=== PATIENT | female | born 1940 | race Caucasian/White ===

== ENCOUNTER 2016-05-18 18:10 | Observation (INO) | payer OTHER ==
[~2016-05-18] VITALS: Ht 167.6 cm; Wt 67.6 kg
[~2016-05-18 18:10] MED LIST: BUME1TAB PO; DICL75 PO; LEVO.1 PO; OMEP20TA39 PO; PAXI20TA26 PO; PERC5TAB12 PO; POTA20IN3 PO; PREG75 PO; PREM0.45 PO; SUCR1TAB PO
[2016-05-18 18:28] VITALS: BP 137/80; PULSE 82; RESP 18; TEMP 98.2; O2SAT 98
[2016-05-18] MEDS ORDERED: MECLIZINE HCL 25 MG TAB PO ONE (18:30)
[2016-05-18] MEDS ORDERED: ONDANSETRON HCL 4 MG/2 ML VIAL IV PUSH ONE (18:30)
[2016-05-18] MEDS ORDERED: BUME1TAB PO (18:37)
[2016-05-18] MEDS ORDERED: LYRI100C PO (18:37)
[2016-05-18] MEDS ORDERED: PARO20TA2 PO (18:37)
[2016-05-18] MEDS ORDERED: ESTR2TAB PO (18:37)
[2016-05-18] MEDS ORDERED: POTA-163 PO (18:37)
[2016-05-18] MEDS ORDERED: SUCR1TAB PO (18:37)
[2016-05-18] MEDS ORDERED: LEVO88TA2 PO (18:37)
[2016-05-18] MEDS ORDERED: OMEP40CA2 PO (18:37)
[2016-05-18] MEDS ORDERED: DICL50TA PO (18:37)
[2016-05-18] MEDS: SODIUM CHLOR 0.9% 1000 ML INJ 1,000 ML IV SCH ×3 (18:41→23:32)
--- NOTE | 2016-05-18 18:41 | PD ---
HPI Chief Complaint: Dizziness Time Seen by Provider: 18:27 Travel History International Travel<30 days: No Contact w/Intl Traveler<30days: No Traveled to known affect area: No History of Present Illness HPI 75 years old female complains of left hip pain, dizziness, nausea vomiting. Patient states that she fell 5 days ago on the left hip and has persistent left hip pain since then. Patient states the pain is sharp pain localized to left hip. Patient denies any pain radiation. Patient started having dizziness with nausea vomiting since last night. Patient denies any headache. Patient denies any neck pain. Patient denies any chest pain or shortness of breath. Patient denies abdominal pain. Patient has indigestion feeling for the past several days. Patient denies any dysuria or frequency. Patient denies any focal weakness or numbness of extremity. Patient states that the dizziness is worse when her eyes open and better when her eyes closed. Patient denies any recent head injury. PFSH Past Medical History Arthritis: Yes (RA) Asthma: Yes Anxiety: No Depression: No Heart Rhythm Problems: No Cancer: No Cardiovascular Problems: No High Cholesterol: No Chest Pain: No Congestive Heart Failure: No COPD: No Cerebrovascular Accident: No Diabetes: No Diminished Hearing: No Endocrine: Yes GERD: Yes Genitourinary: Yes (HX OF FREQUENT UTI) Hepatitis: No Hiatal Hernia: Yes Immune Disorder: Yes (RHEUMATOID ARTHRITIS) Kidney Stones: No Musculoskeletal: Yes (RHEUMATOID ARTHRITIS, LOWER BACK AND L KNEE PAIN) Neurologic: Yes (LEXIS NEUROPATHY LEXIS UPPER/LOWER EXTREMITIES, RHEUMATOID ARTHRITIS) Psychiatric: No Reproductive: No Respiratory: Yes (HX OF ASTHMA, CHRONIC COUGH) Migraines: No Renal Failure: No Seizures: No Sleep Apnea: No Thyroid Disease: Yes Ulcer: Yes ?: Not Dilation and Curettage (D&C): Yes (x5) Past Surgical History Abdominal Surgery: Yes (UMBILICAL HERNIA REPAIR ) AICD: No Arteriovenous Shunt: No Ear Surgery: No Endocrine Surgery: No Eye Surgery: No Genitourinary Surgery: Yes (BLADDER SLING 06/2012) Gynecologic Surgery: Yes (HYSTERECTOMY , D & C'S -- 8 OR 9) Hysterectomy: Yes Insulin Pump: No Joint Replacement: Yes (R KNEE REPLACEMENT) Oral Surgery: No Pacemaker: No Other Surgery: Yes (finger surgery, carpal tunnel, RIGHT KNEE REPLACEMENT) Social History Alcohol Use: No Tobacco Use: No Substance Use: No Allergies-Medications (Allergen,Severity, Reaction): Coded Allergies: Remicade (Unverified Allergy, Intermediate, 02/01/14) Reported Meds & Prescriptions Reported Meds & Active Scripts Active Percocet 5-325 mg (Oxycodone/Acetaminophen) Oxycodone 5/325 Acetaminophen Tab 1 Tab PO Q4H PRN Synthroid 100 mcg (Levothyroxine Sodium) 100 Mcg Tab 100 Mcg PO DAILY Reported Diclofenac Sodium 75 Mg Tab 75 Mg PO BID Hm Omeprazole (Omeprazole) 20 Mg Tab 40 Mg PO TIDAC Lyrica (Pregabalin) 75 Mg Cap 75 Mg PO TID Sucralfate 1 Gm Tab 1 Gm PO QID Potassium Chloride ER 20 meq 20 Meq Tab 20 Meq PO DAILY Bumetanide 1 Mg Tab (Bumetanide) 1 Mg Tab 1 Mg PO DAILY Paxil (Paroxetine HCl) 20 Mg Tab 20 Mg PO HS Premarin (Estrogens Conjugated) 0.45 Mg Tab 0.45 Mg PO DAILY Review of Systems General / Constitutional: No: Fever Eyes: No: Visual changes HENT: Positive: Lightheadedness, No: Headaches Cardiovascular: No: Chest Pain or Discomfort Respiratory: No: Shortness of Breath Gastrointestinal: Positive: Nausea, Vomiting, No: Abdominal Pain Genitourinary: No: Dysuria Musculoskeletal: No: Pain Skin: No Rash Neurologic: No: Weakness Psychiatric: No: Depression Endocrine: No: Polydipsia Hematologic/Lymphatic: No: Easy Bruising Physical Exam Narrative GENERAL: Well-nourished, well-developed patient. SKIN: Focused skin assessment warm/dry. HEAD: Normocephalic. EYES: No scleral icterus. No injection or drainage. Pupils 2 mm equal reactive. NECK: Supple, trachea midline. No JVD or lymphadenopathy. CARDIOVASCULAR: Regular rate and rhythm without murmurs, gallops, or rubs. RESPIRATORY: Breath sounds equal bilaterally. No accessory muscle use. GASTROINTESTINAL: Abdomen soft, non-tender, nondistended. MUSCULOSKELETAL: Patient has ecchymosis swelling tenderness left hip area. Full range of motion of the left hip. BACK: Nontender without obvious deformity. No CVA tenderness. Neurologic exam: Patient's awake and alert oriented 3. No obvious focal neurological deficit. Data Data Last Documented VS Vital Signs Date Time Temp Pulse Resp B/P Pulse Ox O2 Delivery O2 Flow Rate FiO2 05/18/16 18:28 98.2 82 18 137/80 98 Orders Complete Blood Count With Diff (05/18/16 18:27) Comprehensive Metabolic Panel (05/18/16 18:) Prothrombin Time / Inr (Pt) (05/18/16 18:27) Act Partial Throm Time (Ptt) (05/18/16 18:) Urinalysis - C+S If Indicated (05/18/16 18:) Iv Access Insert/Monitor (05/18/16:) Ecg Monitoring (05/18/16 18:) Oximetry (05/18/16 18:) Sodium Chlor 0.9% 1000 Ml Inj (Ns 1000 M (05/18/16 18:30) Ondansetron Inj (Zofran Inj) (05/18/16 18:30) Meclizine (Antivert) (05/18/16 18:30) MDM Medical Decision Making Medical Screen Exam Complete: Yes Emergency Medical Condition: Yes Differential Diagnosis Differential diagnosis including contusion, fracture, dislocation, vertigo, electrolyte imbalance, dehydration, TIA, CVA Narrative Course 75-year-old female with left hip injury, dizziness, nausea vomiting. Normal saline solution 1 25 cc an hour. Meclizine 25 mg by mouth. Zofran 4 mg IV. John Duggan MD May 18, 2016 18:41
[2016-05-18 18:42] LABS: AUTOMATED NEUTROPHIL # 5.6 TH/MM3 (1.8-7.7); BASOPHIL # 0.1 TH/MM3 (0-0.2); BASOPHIL % 0.6 % (0.0-2.0); EOSINOPHIL # 0.1 TH/MM3 (0-0.4); EOSINOPHIL % 0.8 % (0.0-4.0); HEMATOCRIT 34.3 % (35.0-46.0); HEMO FLAGS DIFF FINAL; LYMPH % 25.4 % (9.0-44.0); LYMPHOCYTE # 2.2 TH/MM3 (1.0-4.8); MEAN CELL VOLUME 85.2 FL (80.0-100.0); MEAN CORPUSCULAR HGB CONC 34.1 % (32.0-36.0); MONO % 7.4 % (0.0-8.0); NEUT % 65.8 % (16.0-70.0); PLATELET COUNT 330 TH/MM3 (150-450); RED BLOOD COUNT 4.03 MIL/MM3 (4.00-5.30); RED CELL DISTRIBUTION WIDTH 14.3 % (11.6-17.2); WHITE BLOOD COUNT 8.6 TH/MM3 (4.0-11.0)
[2016-05-18 18:43] VITALS: RESP 20; O2SAT 98
[2016-05-18 18:50] LABS: CHLORIDE 105 MEQ/L (98-107); POTASSIUM 3.4 MEQ/L (3.5-5.1); SODIUM (NA) 141 MEQ/L (136-145)
[2016-05-18 18:54] LABS: ANION GAP 10 MEQ/L (5-15); BICARBONATE 25.6 MEQ/L (21.0-32.0); BLOOD UREA NITROGEN 17 MG/DL (7-18)
[2016-05-18 18:56] LABS: INTERNATIONAL NORMALIZED RATIO 0.9 RATIO
[2016-05-18 18:57] LABS: ALT (GPT) 95 U/L (10-53); AST (GOT) 54 U/L (15-37); GLOMERULAR FILTRATION RATE 59 ML/MIN (>89)
[2016-05-18 18:59] LABS: TOTAL BILIRUBIN ADULT 1.3 MG/DL (0.2-1.0)
[2016-05-18 19:00] LABS: ALKALINE PHOSPHATASE 44 U/L (45-117)
[2016-05-18] MEDS ORDERED: ACETAMINOPHEN/HYDROcodone 325 MG/5 MG TAB PO ONE (19:15)
[2016-05-18 19:52] VITALS: BP 158/76; PULSE 80; O2SAT 95
--- NOTE | 2016-05-18 20:06 | RADHPO ---
EXAM DATE/TIME: 05/18/2016 19:41 [facility] COMPARISON: No previous studies available for comparison. INDICATIONS : Fall. Left hip pain. MEDICAL HISTORY : None. SURGICAL HISTORY : None. ENCOUNTER: Initial ACUITY: 1 day PAIN SCORE: 8/10 LOCATION: Left pelvis FINDINGS: There is moderate osteoarthritis at the left hip. No acute fracture or dislocation. Fixation apparatu s present overlying the lower lumbar spine with multiple laminectomies. CONCLUSION: 1. Moderate osteoarthritis left hip. No acute fracture or dislocation. Shubham Esposito MD on May 18, 2016 at 20:02 Board Certified Radiologist. This report was verified electronically.
[2016-05-18] MEDS ORDERED: LORazepam 2 MG/ML VIAL IV PUSH ONE (20:30)
[2016-05-18] MEDS ORDERED: PREGABALIN 100 MG CAP PO ONE (20:30)
--- NOTE | 2016-05-18 21:09 | RADHPO ---
EXAM DATE/TIME: 05/18/2016 20:42 [facility] COMPARISON: CT BRAIN W/O CONTRAST, March 11, 2013, 12:19. INDICATIONS : Dizziness with nausea and vomiting. RADIATION DOSE: 56.80 CTDIvol (mGy) MEDICAL HISTORY : Rheumatoid arthritis. SURGICAL HISTORY : None. ENCOUNTER: Initial ACUITY: 1 day PAIN SCALE: 0/10 LOCATION: cranial TECHNIQUE: Multiple contiguous axial images were obtained of the head. Using automated exposure control and adj ustment of the mA and/or kV according to patient size, radiation dose was kept as low as reasonably a chievable to obtain optimal diagnostic quality images. FINDINGS: CEREBRUM: The ventricles are normal for age. No evidence of midline shift, mass lesion, hemorrhage or acute in farction. No extra-axial fluid collections are seen. POSTERIOR FOSSA: The cerebellum and brainstem are intact. The 4th ventricle is midline. The cerebellopontine angle i s unremarkable. EXTRACRANIAL: The visualized portion of the orbits is intact. SKULL: The calvaria is intact. No evidence of skull fracture. CONCLUSION: 1. No acute findings. Remote lacunar infarct left basal ganglia. Shubham Esposito MD on May 18, 2016 at 21:06 Board Certified Radiologist. This report was verified electronically.
[2016-05-18 21:13] VITALS: BP 133/66; PULSE 81; O2SAT 95
[2016-05-18] MEDS ORDERED: ONDANSETRON HCL 4 MG/2 ML VIAL IVP PRN (21:45)
[2016-05-18] MEDS ORDERED: BISACODYL 10 MG SUPP RECTAL PRN (21:45)
[2016-05-18] MEDS ORDERED: ACETAMINOPHEN 325 MG TAB PO PRN (21:45)
[2016-05-18] MEDS ORDERED: SODIUM CHLORIDE 0.9% FLUSH 10 ML FLUSH IV FLUSH PRN (21:45)
[2016-05-18] MEDS ORDERED: MORPHINE SULFATE 4 MG/ML INJ IV PRN (21:45)
[2016-05-18] MEDS ORDERED: LORazepam 2 MG/ML VIAL IV PUSH PRN (21:45)
--- NOTE | 2016-05-18 21:53 | PD ---
Data Data Last Documented VS Vital Signs Date Time Temp Pulse Resp B/P Pulse Ox O2 Delivery O2 Flow Rate FiO2 05/18/16 21:13 81 133/66 95 Room Air 05/18/16 18:43 20 05/18/16 18:28 98.2 Orders Complete Blood Count With Diff (05/18/16 18:27) Comprehensive Metabolic Panel (05/18/16 18:27) Prothrombin Time / Inr (Pt) (05/18/16 18:27) Act Partial Throm Time (Ptt) (05/18/16 18:27) Urinalysis - C+S If Indicated (05/18/16 18:27) Iv Access Insert/Monitor (05/18/16 18:27) Ecg Monitoring (05/18/16 18:27) Oximetry (05/18/16 18:27) Sodium Chlor 0.9% 1000 Ml Inj (Ns 1000 M (05/18/16 18:30) Ondansetron Inj (Zofran Inj) (05/18/16 18:30) Meclizine (Antivert) (05/18/16 18:30) Hip, Uni(Ap&Lat) W Ap Pelvis (05/18/16 18:34) Acetamin-Hydrocod 325-5 Mg (Como 5-325 (05/18/16 19:15) Ct Brain W/O Iv Contrast(Rout) (05/18/16 ) Lorazepam Inj (Ativan Inj) (05/18/16 20:30) Pregabalin (Lyrica) (05/18/16 20:30) Admit Order (Ed Use Only) (05/18/16 21:37) Labs Laboratory Tests Test 05/18/16 16:35 White Blood Count 8.6 TH/MM3 Red Blood Count 4.03 MIL/MM3 Hemoglobin 11.7 GM/DL Hematocrit 34.3 % Mean Corpuscular Volume 85.2 FL Mean Corpuscular Hemoglobin 29.0 PG Mean Corpuscular Hemoglobin 34.1 % Concent Red Cell Distribution Width 14.3 % Platelet Count 330 TH/MM3 Mean Platelet Volume 8.2 FL Neutrophils (%) (Auto) 65.8 % Lymphocytes (%) (Auto) 25.4 % Monocytes (%) (Auto) 7.4 % Eosinophils (%) (Auto) 0.8 % Basophils (%) (Auto) 0.6 % Neutrophils # (Auto) 5.6 TH/MM3 Lymphocytes # (Auto) 2.2 TH/MM3 Monocytes # (Auto) 0.6 TH/MM3 Eosinophils # (Auto) 0.1 TH/MM3 Basophils # (Auto) 0.1 TH/MM3 CBC Comment DIFF FINAL Differential Comment Prothrombin Time 10.0 SEC Prothromb Time International 0.9 RATIO Ratio Activated Partial 24.0 SEC Thromboplast Time Sodium Level 141 MEQ/L Potassium Level 3.4 MEQ/L Chloride Level 105 MEQ/L Carbon Dioxide Level 25.6 MEQ/L Anion Gap 10 MEQ/L Blood Urea Nitrogen 17 MG/DL Creatinine 0.92 MG/DL Estimat Glomerular Filtration 59 ML/MIN Rate Random Glucose 106 MG/DL Calcium Level 8.9 MG/DL Total Bilirubin 1.3 MG/DL Aspartate Amino Transf 54 U/L (AST/SGOT) Alanine Aminotransferase 95 U/L (ALT/SGPT) Alkaline Phosphatase 44 U/L Total Protein 7.2 GM/DL Albumin 3.8 GM/DL [facility] Supervised Visit with ROSARIO: No Interpretation(s) Afebrile, no tachycardia No leukocytosis Mild transaminitis, no baseline labs for 3 years Differential Diagnosis Peripheral vertigo, posterior CVA, subdural hematoma, subarachnoid hemorrhage Narrative Course This is a 75 year old female who had a fall several days ago with subsequent constant worsening vertigo. On exam she is getting extremely uncomfortable and her symptoms are present at rest. She has horizontal nystagmus. I suspect her symptoms are peripheral however despite meclizine, Zofran, IV fluids and Ativan she continues to be very uncomfortable. CT was negative for intracranial hemorrhage. Labs were reassuring. She does have a mild transaminitis but she' s not complaining of any abdominal pain at this time. We don't have any baseline labs for several years. Patient will be admitted for symptomatic control and possible MRI if her symptoms don't improve. Physician Communication Physician Communication Discussed with Dr. Monroy Diagnosis Primary Impression: Vertigo Admitting Information Admitting Physician Requests: Observation Reina Land MD May 18, 2016 21:53
[2016-05-18 23:00] VITALS: BP 143/83; PULSE 75; RESP 18; TEMP 98.1; O2SAT 96
[2016-05-19] VITALS: BP 163/81; PULSE 66; RESP 16; TEMP 95.6; O2SAT 96
[2016-05-19] MEDS: SODIUM CHLOR 0.9% 1000 ML INJ 1,000 ML IV SCH ×2 (02:30→08:33)
[2016-05-19 06:19] LABS: AUTOMATED NEUTROPHIL # 3.1 TH/MM3 (1.8-7.7); BASOPHIL # 0.1 TH/MM3 (0-0.2); BASOPHIL % 0.8 % (0.0-2.0); EOSINOPHIL # 0.1 TH/MM3 (0-0.4); EOSINOPHIL % 2.3 % (0.0-4.0); HEMATOCRIT 28.9 % (35.0-46.0); HEMO FLAGS DIFF FINAL; LYMPH % 38.8 % (9.0-44.0); LYMPHOCYTE # 2.5 TH/MM3 (1.0-4.8); MEAN CELL VOLUME 86.2 FL (80.0-100.0); MEAN CORPUSCULAR HGB CONC 33.6 % (32.0-36.0); MONO % 9.3 % (0.0-8.0); NEUT % 48.8 % (16.0-70.0); PLATELET COUNT 252 TH/MM3 (150-450); RED BLOOD COUNT 3.36 MIL/MM3 (4.00-5.30); WHITE BLOOD COUNT 6.4 TH/MM3 (4.0-11.0)
[2016-05-19 06:34] LABS: CHLORIDE 110 MEQ/L (98-107); POTASSIUM 3.3 MEQ/L (3.5-5.1); SODIUM (NA) 146 MEQ/L (136-145)
[2016-05-19 06:55] LABS: ALKALINE PHOSPHATASE 32 U/L (45-117); ALT (GPT) 74 U/L (10-53); ANION GAP 9 MEQ/L (5-15); AST (GOT) 42 U/L (15-37); BICARBONATE 27.3 MEQ/L (21.0-32.0); BLOOD UREA NITROGEN 13 MG/DL (7-18); GLOMERULAR FILTRATION RATE 72 ML/MIN (>89); TOTAL BILIRUBIN ADULT 1.4 MG/DL (0.2-1.0)
[2016-05-19 08:00] VITALS: BP 130/65; PULSE 74; RESP 18; TEMP 98.1; O2SAT 94
[2016-05-19] MEDS: ACETAMINOPHEN/HYDROcodone 325 MG/5 MG TAB PO PRN ×2 (08:32→23:08)
[2016-05-19] MEDS: MECLIZINE HCL 25 MG TAB PO PRN ×2 (08:32→12:44)
[2016-05-19] MEDS: SODIUM CHLORIDE 0.9% FLUSH 10 ML FLUSH IV FLUSH SCH ×2 (09:00→21:00)
[2016-05-19 10:07] LABS: INDIRECT BILIRUBIN 1.1 MG/DL (0.0-0.8); TOTAL BILIRUBIN ADULT 1.3 MG/DL (0.2-1.0)
[2016-05-19] MEDS ORDERED: POTASSIUM CHLORIDE 10 MEQ CONTROLLED RELEASE TAB PO ONE (10:45)
[2016-05-19] MEDS: DEXT 5%-NACL 0.45% 1000 ML INJ 1,000 ML IV SCH ×2 (11:05→22:40)
[2016-05-19 12:00] VITALS: BP 156/78; PULSE 63; RESP 20; TEMP 96.9; O2SAT 99
[2016-05-19] MEDS ORDERED: LEVO100T5 PO (12:54)
[2016-05-19] MEDS ORDERED: HYDR-3516 PO (12:54)
--- NOTE | 2016-05-19 14:28 | HHI.HP ---
[facility] Service [facility] Primary Care Physician Non-Staff Admission Diagnosis vertigo Diagnoses: (1) Vertigo Chief Complaint: Lightheadedness and dizziness, nausea vomiting Travel History International Travel<30 Days: No Contact w/Intl Traveler <30 Da: No Traveled to Known Affected Are: No History of Present Illness 75-year-old female with known history of rheumatoid arthritis, hypothyroidism who presented to the hospital because of lightheadedness and dizziness. Patient states that last week she fell after reaching for the door handle, missing the handle and tripping over a stone onto her left hip. Patient states that since then she had been having episodes of dizziness with the room spinning. The patient has had vertigo in the past and where she did undergo vestibular therapy at [facility] 5 years ago. Patient indicates that over the last 3 days she is had increased dizziness, nausea, vomiting. The patient came to emergency department for evaluation. Patient had workup done which showed some mild abnormalities with elevated liver enzymes, hypokalemia. Is recommended by the ER physician that patient be observed for symptomatic control and possible MRI if symptoms do not improve. Upon evaluating the patient today with Dr. Mason. Patient still have an obvious dizziness with significant lateral nystagmus. Patient states that she has not had any nausea vomiting today. She has tolerated liquids and food. Patient did undergo Chidi maneuver by Dr. Mason with significant improvement of her dizziness and nystagmus. Laboratory studies do indicate significant TSH elevation, despite use of daily thyroid medication. However patient indicates that she takes all her medications together without any time intervals between taking medications. Review of Systems Constitutional: COMPLAINS OF: Dizziness, DENIES: Diaphoretic episodes, Fatigue , Fever, Weight gain, Weight loss, Chills, Change in appetite, Night Sweats Eyes: DENIES: Blurred vision, Diplopia, Eye inflammation, Eye pain, Vision loss , Double Vision Ears, nose, mouth, throat: COMPLAINS OF: Vertigo, DENIES: Nasal discharge, Throat pain, Ear Pain, Running Nose, Toothache Respiratory: DENIES: Apneas, Cough, Snoring, Wheezing, Hemoptysis, Sputum production, Shortness of breath Cardiovascular: DENIES: Chest pain, Palpitations, Syncope, Dyspnea on Exertion , PND, Lower Extremity Edema, Orthopnea, Claudication Gastrointestinal: DENIES: Abdominal pain, Black stools, Bloody stools, Constipation, Diarrhea, Nausea, Vomiting, Difficulty Swallowing, Anorexia Neurologic: DENIES: Abnormal gait, Headache, Localized weakness, Paresthesias, Seizures, Speech Problems, Tremor, Poor Balance Psychiatric: DENIES: Anxiety, Confusion, Mood changes, Depression Past Family Social History Past Medical History Rheumatoid arthritis Hypothyroidism Peripheral neuropathy Past Surgical History Carpal tunnel surgery Trigger finger release Umbilical hernia repair Hysterectomy D&C Bladder sling Right knee replacement Bilateral knee meniscus surgery Right transforaminal interbody fusion, L4-L5 pedicle screw fixation, L4-L5 interbody cage placement, L4-5 hemilaminectomy with fasciectomy Incision and drainage, tenosynovectomy right second and fourth dorsal wrist compartments Reported Medications Reported Meds & Active Scripts Active Levothyroxine (Levothyroxine Sodium) 100 Mcg Tab 100 Mcg PO DAILY Take in the morning 30 minutes before breakfast on an empty stomach. Hydrocodone-Acetaminophen 5-325 mg Tab 1 Tab PO Q4H PRN Reported Omeprazole 40 Mg Cap 40 Mg PO DAILY Sucralfate 1 Gm Tab 1 Gm PO QID on empty stomach Potassium Chloride ER (Potassium Chloride) 20 Meq Tab 20 Meq PO DAILY Bumetanide 1 Mg Tab 1 Mg PO DAILY Paroxetine (Paroxetine HCl) 20 Mg Tab 20 Mg PO DAILY Levothyroxine (Levothyroxine Sodium) 88 Mcg Tab 88 Mcg PO DAILY Estradiol 2 Mg Tab 5 Mg PO DAILY Diclofenac Potassium 50 Mg Tab 75 Mg PO BID Lyrica (Pregabalin) 100 Mg Cap 100 Mg PO TID Allergies: Coded Allergies: Remicade (Unverified Allergy, Intermediate, 05/18/16) Family History Reviewed is significant for father from heart attack and having end- stage renal disease. Mother from heart attack Social History Patient denies any tobacco, alcohol or illicit drugs Physical Exam Vital Signs Vital Signs Date Time Temp Pulse Resp B/P Pulse Ox O2 Delivery O2 Flow Rate FiO2 05/19/16 12:00 96.9 63 20 156/78 99 05/19/16 09:32 20 05/19/16 08:00 98.1 74 18 130/65 94 05/19/16 00:00 95.6 66 16 163/81 96 05/18/16 23:00 98.1 75 18 143/83 96 05/18/16 21:13 81 133/66 95 Room Air 05/18/16 20:11 Room Air 05/18/16 19:52 80 158/76 95 Room Air 05/18/16 18:43 20 98 Room Air 05/18/16 18:28 98.2 82 18 137/80 98 Physical Exam GENERAL: Well-developed, well-nourished, in no acute distress. alert and orientated HEENT: Head is normocephalic without any lesions or masses noted. Facial features are symmetric. Eyes: Pupils equal round reactive to light. Extraocular muscles are intact. Rather coarse lateral nystagmus, after Chidi maneuver nystagmus is significantly improved. Conjunctivae were clear. Oropharyngeal: Pharynx without any erythema edema. Tongue is midline without deviation. Buccal mucosa is moist without any masses or lesions NECK: Supple without any masses. Trachea midline no deviation. No JVD, no bruits are appreciated CARDIAC: Regular rhythm, regular rate. S1/S2 are heard. No murmurs gallops or rubs. LUNGS: Clear to auscultation bilaterally. No wheeze, rhonchi or rales. No use of accessory muscles on inspiration or expiration. ABDOMEN: Soft, nontender. Nondistended. Bowel sounds heard in all 4 quadrants. No organomegaly or masses. Negative rebound, negative guarding EXTREMITIES: No edema, pulses are equal bilaterally. No cyanosis or clubbing NEUROLOGY: Mood and affect appear appropriate. Cranial nerves II through XII grossly intact. Muscle strength 5/5 in upper and lower extremities bilaterally. Deep tendon reflexes are 2+ in upper and lower extremities bilaterally. LEFT HIP: Patient with significant ecchymosis that appears to be healing Laboratory Laboratory Tests Test 05/18/16 05/19/16 16:35 05:46 Prothrombin Time 10.0 Prothromb Time International 0.9 Ratio Activated Partial 24.0 Thromboplast Time Sodium Level 141 146 Potassium Level 3.4 3.3 Chloride Level 105 110 Carbon Dioxide Level 25.6 27.3 Anion Gap 10 9 Blood Urea Nitrogen 17 13 Creatinine 0.92 0.78 Estimat Glomerular Filtration 59 72 Rate Random Glucose 106 87 Calcium Level 8.9 7.7 Total Bilirubin 1.3 1.3 Aspartate Amino Transf 54 42 (AST/SGOT) Alanine Aminotransferase 95 74 (ALT/SGPT) Alkaline Phosphatase 44 32 Total Protein 7.2 5.9 Albumin 3.8 3.1 White Blood Count 8.6 6.4 Red Blood Count 4.03 3.36 Hemoglobin 11.7 9.7 Hematocrit 34.3 28.9 Mean Corpuscular Volume 85.2 86.2 Mean Corpuscular Hemoglobin 29.0 29.0 Mean Corpuscular Hemoglobin 34.1 33.6 Concent Red Cell Distribution Width 14.3 14.0 Platelet Count 330 252 Mean Platelet Volume 8.2 8.7 Neutrophils (%) (Auto) 65.8 48.8 Lymphocytes (%) (Auto) 25.4 38.8 Monocytes (%) (Auto) 7.4 9.3 Eosinophils (%) (Auto) 0.8 2.3 Basophils (%) (Auto) 0.6 0.8 Neutrophils # (Auto) 5.6 3.1 Lymphocytes # (Auto) 2.2 2.5 Monocytes # (Auto) 0.6 0.6 Eosinophils # (Auto) 0.1 0.1 Basophils # (Auto) 0.1 0.1 CBC Comment DIFF FINAL DIFF FINAL Differential Comment Magnesium Level 2.0 Direct Bilirubin 0.2 Indirect Bilirubin 1.1 Total Creatine Kinase 127 Thyroid Stimulating Hormone 34.500 3rd Gen Result Diagram: 05/19/16 0546 05/19/16 0546 Imaging Last Impressions Hip and Pelvis X-Ray 05/18/16 1834 Signed Impressions: Service Date/Time: Wednesday, May 18, 2016 19:41 - CONCLUSION: 1. Moderate osteoarthritis left hip. No acute fracture or dislocation. Shubham Esposito MD Head CT 05/18/16 0000 Signed Impressions: Service Date/Time: Wednesday, May 18, 2016 20:42 - CONCLUSION: 1. No acute findings. Remote lacunar infarct left basal ganglia. Shubham Esposito MD Assessment and Plan Assessment and Plan //Vertigo: Patient does have past medical history of vertigo requiring outpatient physical therapy. Patient's symptoms significantly improved after Chidi maneuver. Discontinue Antivert at this time due to improvement after Chidi maneuver Would recommend outpatient management with continued physical therapy, Chidi maneuvers //Hypothyroidism, patient states that she even taken medication as directed TSH 34.5 Obtaining free T4 and total T3 We'll increase patient's dose of levothyroxine upon discharge //Electrolyte abnormalities with hypernatremia, hypokalemia, hyperchloremia, hypocalcemia Continue monitoring place as needed Change to one half normal saline Monitor sodium level //Elevated liver enzymes, possibly related to decreased oral intake, nausea and vomiting Continue monitor LFTs //Peripheral neuropathy Continue home medication Lyrica //Rheumatoid arthritis Continue home medications //DVT prevention Sequential compression devices Avoid chemical prophylaxis secondary to recent fall and significant ecchymosis of the left hip Written by Sky Butler PA-C, acting as scribe for Dr. Mason on 05/19/16 at 1425. All or portions of this note were transcribed by scribe [Sky Butler PA-C] . I, Dr. Jamar Mason personally performed the history, physical exam, and medical decision making; and confirmed the accuracy of the information in the transcribed note. Authenticated by Dr. Jamar Mason on 05/19/16 at 16:00. Discussed Condition With patient , nurse. Sky Butler May 19, 2016 14:28 Jamar Mason MD May 19, 2016 16:00
[2016-05-19] MEDS ORDERED: LEVOTHYROXINE SODIUM 100 MCG TAB PO ONE (14:30)
[2016-05-19 16:00] VITALS: BP 147/69; PULSE 65; RESP 18; TEMP 98; O2SAT 94
[2016-05-19 16:36] LABS: FREE T4 0.55 NG/DL (0.76-1.46)
[2016-05-19 18:01] LABS: AMPHETAMINE, URINE NEG (NEG); BARBITURATES, URINE NEG (NEG)
[2016-05-19 18:09] LABS: COCAINE, URINE NEG (NEG)
[2016-05-19 20:00] VITALS: BP 127/77; PULSE 62; RESP 16; TEMP 95.8; O2SAT 96
[2016-05-19 20:00] LABS: BLOOD, URINE NEG (NEG); GLUCOSE,URINE NEG (NEG); KETONE, URINE NEG (NEG)
[2016-05-19 20:22] LABS: NITRITE,URINE POS (NEG)
[2016-05-19 20:23] LABS: URINE COLOR YELLOW (YELLW/STRAW)
[2016-05-19 20:24] LABS: MUCUS URINE FEW /lpf (OCC)
[2016-05-19 20:25] LABS: BACTERIA, URINE MANY /hpf; COMMENT (UR) CULTURE INDICATED; CULTURE IF INDICATED CULTURE INDICATED
[2016-05-20] VITALS: BP 200/101; PULSE 77; RESP 20; TEMP 96.8; O2SAT 92
[2016-05-20] MEDS ORDERED: LEVOTHYROXINE SODIUM 100 MCG TAB PO SCH (06:00)
[2016-05-20 06:10] LABS: AUTOMATED NEUTROPHIL # 2.4 TH/MM3 (1.8-7.7); BASOPHIL # 0.1 TH/MM3 (0-0.2); BASOPHIL % 1.2 % (0.0-2.0); EOSINOPHIL # 0.2 TH/MM3 (0-0.4); EOSINOPHIL % 3.6 % (0.0-4.0); HEMATOCRIT 28.1 % (35.0-46.0); HEMO FLAGS DIFF FINAL; LYMPH % 41.9 % (9.0-44.0); LYMPHOCYTE # 2.3 TH/MM3 (1.0-4.8); MEAN CELL VOLUME 86.6 FL (80.0-100.0); MEAN CORPUSCULAR HEMOGLOBIN 28.9 PG (27.0-34.0); MEAN CORPUSCULAR HGB CONC 33.4 % (32.0-36.0); MONO % 8.2 % (0.0-8.0); NEUT % 45.1 % (16.0-70.0); PLATELET COUNT 256 TH/MM3 (150-450); RED BLOOD COUNT 3.24 MIL/MM3 (4.00-5.30); RED CELL DISTRIBUTION WIDTH 14.7 % (11.6-17.2); WHITE BLOOD COUNT 5.4 TH/MM3 (4.0-11.0)
[2016-05-20 06:21] LABS: POTASSIUM 3.7 MEQ/L (3.5-5.1)
[2016-05-20 06:25] LABS: MAGNESIUM 1.9 MG/DL (1.5-2.5)
[2016-05-20] MEDS ORDERED: THIAMINE HCL 100 MG TAB PO SCH (09:00)
[2016-05-20] MEDS ORDERED: POTASSIUM CHLORIDE 20 MEQ CONTROLLED RELEASE TAB PO SCH (09:00)
[2016-05-20] MEDS ORDERED: BUMETANIDE 1 MG TAB PO SCH (09:00)
[2016-05-20] MEDS: SODIUM CHLORIDE 0.9% FLUSH 10 ML FLUSH IV FLUSH SCH (09:00)
[2016-05-20] MEDS ORDERED: PARoxetine HCL 20 MG TAB PO SCH (09:00)
[2016-05-20 09:49] VITALS: BP 188/80; PULSE 66; RESP 15; TEMP 99; O2SAT 98
--- NOTE | 2016-05-20 09:52 | HHI.PR ---
Subjective Remarks Patient seen this morning around 9 AM. Says she is feeling well. Denies any chest pain or shortness of breath. Reports that dizziness is much better, however she is still afraid, does not trust her balance. She says she does feel like going home today. She denies any difficulty walking around the floor with physical therapy. We discussed that she has had apparent vestibular signals per week, will need to learn to use these signals appropriately. Objective Vital Signs Date Time Temp Pulse Resp B/P Pulse Ox O2 Delivery O2 Flow Rate FiO2 05/20/16 00:00 96.8 77 20 200/101 92 05/19/16 20:00 95.8 62 16 127/77 96 05/19/16 16:00 98.0 65 18 147/69 94 05/19/16 12:00 96.9 63 20 156/78 99 I/O 05/19/16 05/19/16 05/19/16 05/20/16 05/20/16 05/20/16 07:00 15:00 23:00 07:00 15:00 23:00 Intake Total 1041 ml 650 ml 1440 ml 360 ml Output Total 200 ml Balance 1041 ml 650 ml 1440 ml 160 ml Intake Oral 240 ml 650 ml 240 ml 360 ml IV Total 801 ml 1200 ml Output Urine Total 200 ml # Voids 1 2 1 # Bowel Movements 0 1 0 0 Result Diagram: 05/20/16 0525 05/20/16 0525 Objective Remarks GENERAL: Patient sitting up in chair eating breakfast. Appears comfortable. She is alert and oriented 3. No nystagmus SKIN: Warm and dry. HEAD: Normocephalic. EYES: No scleral icterus. No injection or drainage. NECK: Supple, trachea midline. No JVD. CARDIOVASCULAR: Regular rate and rhythm without murmurs, gallops, or rubs. RESPIRATORY: Breath sounds equal bilaterally. No accessory muscle use. GASTROINTESTINAL: Abdomen soft, non-tender, nondistended. MUSCULOSKELETAL: No cyanosis, or edema. BACK: Nontender without obvious deformity. No CVA tenderness. A/P Assessment and Plan //Benign paroxysmal positional Vertigo: Patient does have past medical history of vertigo requiring outpatient physical therapy. Patient's symptoms significantly improved after Chidi maneuver. Discontinue Antivert at this time due to improvement after Chidi maneuver Would recommend outpatient management with continued physical therapy, Chidi maneuvers //Hypothyroidism, patient states that she even taken medication as directed TSH 34.5 Low free T4, low normal T3. We'll increase patient's dose of levothyroxine upon discharge. Stressed compliance. //Electrolyte abnormalities with hypernatremia, hypokalemia, hyperchloremia, hypocalcemia Continue monitoring place as needed Change to one half normal saline Resolved. //Elevated liver enzymes, possibly related to decreased oral intake, nausea and vomiting Continue monitor LFTs. Pending. //Peripheral neuropathy Continue home medication Lyrica //Rheumatoid arthritis Continue home medications //Hypertension. Systolic blood pressure of 200 on 05/20. Discussed with nurse. This was measured immediately after walking with physical therapy. We'll recheck sitting blood pressure. //DVT prevention Sequential compression devices -Patient ambulatory with walker. Avoid chemical prophylaxis secondary to recent fall and significant ecchymosis of the left hip Discharge Planning Discharge home today with home health. Repeat resting blood pressure pending. Jamar Mason MD May 20, 2016 09:52
[2016-05-20] MEDS: PREGABALIN 100 MG CAP PO SCH ×2 (09:55→13:52)
--- NOTE | 2016-05-20 10:02 | HHI.FF ---
Face to Face Verification Diagnosis: (1) Vertigo (2) Medication management (3) Hypothyroid Physical Therapy Order: Evaluate and Treat Home Health Nursing Order: Nursing assessment with vital signs Instructions: Home health nurse once weekly for medication management. I have seen patient Giselle Mejia on 05/20/16. My clinical findings support the need for the requested home health care services because: Deconditioned w/ increased weakness I certify that my clinical findings support that this patient is homebound because: Unsafe to leave home unassisted Jamar Mason MD May 20, 2016 10:02
[2016-05-20 10:23] LABS: INDIRECT BILIRUBIN 0.6 MG/DL (0.0-0.8); TOTAL BILIRUBIN ADULT 0.7 MG/DL (0.2-1.0)
[2016-05-20 12:22] VITALS: BP 178/80; PULSE 67; RESP 16; TEMP 98.8; O2SAT 97
[2016-05-20] MEDS ORDERED: LISI-519 PO (13:24)
[2016-05-20] MEDS ORDERED: LISINOPRIL 5 MG TAB PO ONE (13:30)
[2016-05-20 15:11] VITALS: BP 158/78
--- NOTE | 2016-05-21 06:48 | HHI.DS ---
Discharge Summary Admission Date May 18, 2016 at 21:38 Discharge Date: May 20, 2016 Admitting Diagnosis vertigo (1) Vertigo ICD Code: R42 Procedures no invasive procedures performed. Chidi maneuver did resolve her vertigo Brief History - From Admission 75-year-old female with known history of rheumatoid arthritis, hypothyroidism who presented to the hospital because of lightheadedness and dizziness. Patient states that last week she fell after reaching for the door handle, missing the handle and tripping over a stone onto her left hip. Patient states that since then she had been having episodes of dizziness with the room spinning. The patient has had vertigo in the past and where she did undergo vestibular therapy at [facility] 5 years ago. Patient indicates that over the last 3 days she is had increased dizziness, nausea, vomiting. The patient came to emergency department for evaluation. Patient had workup done which showed some mild abnormalities with elevated liver enzymes, hypokalemia. Is recommended by the ER physician that patient be observed for symptomatic control and possible MRI if symptoms do not improve. Upon evaluating the patient today with Dr. Mason. Patient still have an obvious dizziness with significant lateral nystagmus. Patient states that she has not had any nausea vomiting today. She has tolerated liquids and food. Patient did undergo Chidi maneuver by Dr. Mason with significant improvement of her dizziness and nystagmus. Laboratory studies do indicate significant TSH elevation, despite use of daily thyroid medication. However patient indicates that she takes all her medications together without any time intervals between taking medications. CBC/BMP: 05/20/16 0525 05/20/16 0525 Significant Findings Laboratory Tests Test 05/18/16 05/19/16 05/19/16 05/19/16 16:35 05:46 14:10 17:30 Activated Partial 24.0 SEC Thromboplast Time (24.3-30.1) Potassium Level 3.4 MEQ/L 3.3 MEQ/L (3.5-5.1) (3.5-5.1) Estimat Glomerular Filtration 59 ML/MIN (>89) 72 ML/MIN (>89) Rate Total Bilirubin 1.3 MG/DL 1.3 MG/DL (0.2-1.0) (0.2-1.0) Aspartate Amino Transf 54 U/L (15-37) 42 U/L (15-37) (AST/SGOT) Alanine Aminotransferase 95 U/L (10-53) 74 U/L (10-53) (ALT/SGPT) Alkaline Phosphatase 44 U/L (45-117) 32 U/L (45-117) Hematocrit 34.3 % 28.9 % (35.0-46.0) (35.0-46.0) Red Blood Count 3.36 MIL/MM3 (4.00-5.30) Hemoglobin 9.7 GM/DL (11.6-15.3) Monocytes (%) (Auto) 9.3 % (0.0-8.0) Sodium Level 146 MEQ/L (136-145) Chloride Level 110 MEQ/L (98-107) Calcium Level 7.7 MG/DL (8.5-10.1) Indirect Bilirubin 1.1 MG/DL (0.0-0.8) Total Protein 5.9 GM/DL (6.4-8.2) Albumin 3.1 GM/DL (3.4-5.0) Thyroid Stimulating Hormone 34.500 uIU/ML 3rd Gen (0.358-3.740) Free Thyroxine 0.55 NG/DL (0.76-1.46) Urine Opiates Screen POS (NEG) Urine Turbidity CLOUDY (CLEAR) Urine Nitrite POS (NEG) Urine Leukocyte Esterase TRACE (NEG) Urine WBC 50-99 /hpf (0-5) Urine WBC Clumps FEW (NONE) Urine Squamous Epithelial 6-8 /hpf (0-5) Cells Urine Bacteria MANY /hpf (NONE) Urine Mucus FEW /lpf (OCC) Test 05/20/16 05:25 Red Blood Count 3.24 MIL/MM3 (4.00-5.30) Hemoglobin 9.4 GM/DL (11.6-15.3) Hematocrit 28.1 % (35.0-46.0) Monocytes (%) (Auto) 8.2 % (0.0-8.0) Chloride Level 110 MEQ/L (98-107) Estimat Glomerular Filtration 74 ML/MIN (>89) Rate Random Glucose 121 MG/DL (74-106) Calcium Level 8.4 MG/DL (8.5-10.1) Aspartate Amino Transf 43 U/L (15-37) (AST/SGOT) Alanine Aminotransferase 70 U/L (10-53) (ALT/SGPT) Alkaline Phosphatase 44 U/L (45-117) Total Protein 5.4 GM/DL (6.4-8.2) Albumin 2.8 GM/DL (3.4-5.0) Imaging Last Impressions Hip and Pelvis X-Ray 05/18/161833 Signed Impressions: Service Date/Time: Wednesday, May 18, 2016 19:41 - CONCLUSION: 1. Moderate osteoarthritis left hip. No acute fracture or dislocation. Shubham Esposito MD Head CT 05/18/16 0000 Signed Impressions: Service Date/Time: Wednesday, May 18, 2016 20:42 - CONCLUSION: 1. No acute findings. Remote lacunar infarct left basal ganglia. Shubham Esposito MD PE at Discharge Last Impressions Hip and Pelvis X-Ray 05/18/161833 Signed Impressions: Service Date/Time: Wednesday, May 18, 2016 19:41 - CONCLUSION: 1. Moderate osteoarthritis left hip. No acute fracture or dislocation. Shubham Esposito MD Head CT 05/18/16 0000 Signed Impressions: Service Date/Time: Wednesday, May 18, 2016 20:42 - CONCLUSION: 1. No acute findings. Remote lacunar infarct left basal ganglia. Shubham Esposito MD Hospital Course patient found to have lateral nystagmus on exam. This resolved with Chidi maneuver performed at bedside. However patient still with some gait instability , however dizziness and nausea resolved. She worked with physical therapy, and physical therapy was recommended at home, however patient and declined. Patient also has a history of hypothyroidism on replacement, however was found to have TSH elevated in the 30s, with low T4. Her Synthroid was increased from 88 g to 100 g daily. Compliance discussed at length. Patient and refuse home health nursing for medication management.patient will need to follow-up with primary care with repeat TSH in several months. Patient does have mildly elevated liver enzymes, which will need to be followed up as outpatient. Normal CK. Patient did receive x-ray of left hip, which was negativefor fracture. She does have ecchymosis and bruising. blood pressure was found to be elevated in the 180s on the day of discharge. This improved with lisinopril 5 mg 1. she will be discharged home on lisinopril. Follow-up primary care. for problem-based summary for most recent progress note, please see below. //Benign paroxysmal positional Vertigo: Patient does have past medical history of vertigo requiring outpatient physical therapy. Patient's symptoms significantly improved after Chidi maneuver. Discontinue Antivert at this time due to improvement after Chidi maneuver Would recommend outpatient management with continued physical therapy, Chidi maneuvers //Hypothyroidism, patient states that she even taken medication as directed TSH 34.5 Low free T4, low normal T3. We'll increase patient's dose of levothyroxine upon discharge. Stressed compliance. //Electrolyte abnormalities with hypernatremia, hypokalemia, hyperchloremia, hypocalcemia Continue monitoring place as needed Change to one half normal saline Resolved. //Elevated liver enzymes, possibly related to decreased oral intake, nausea and vomiting Continue monitor LFTs. Pending. //Peripheral neuropathy Continue home medication Lyrica //Rheumatoid arthritis Continue home medications //Hypertension. Systolic blood pressure of 200 on 05/20. Discussed with nurse. This was measured immediately after walking with physical therapy. We'll recheck sitting blood pressure. //DVT prevention Sequential compression devices -Patient ambulatory with walker. Avoid chemical prophylaxis secondary to recent fall and significant ecchymosis of the left hip Discharge Planning Discharge home today with home health. Repeat resting blood pressure pending. Pt Condition on Discharge: Good Discharge Disposition: Disch w/ Home Health Serv Discharge Time: > 30 minutes Discharge Instructions DIET: Follow Instructions for: Heart Healthy Diet Activities you can perform: Regular-No Restrictions Follow up Referrals: PCP Follow-up - 1 Week New Medications: Levothyroxine (Levothyroxine) 100 Mcg Tab 100 MCG PO DAILY Take in the morning 30 minutes before breakfast on an empty stomach. Thyroid #30 Ref 0 TAB Lisinopril (Lisinopril) 5 Mg Tab 5 MG PO DAILY Blood Pressure Management #30 Ref 0 TAB Hydrocodone-Acetaminophen (Hydrocodone-Acetaminophen) 5-325 mg Tab 1 TAB PO Q4H PRN PAIN SCALE 3 TO 5 #20 TAB Continued Medications: Bumetanide (Bumetanide) 1 Mg Tab 1 MG PO DAILY #30 Ref 0 TAB Estradiol (Estradiol) 2 Mg Tab 5 MG PO DAILY Estrogen Supplements #30 Ref 0 TAB Omeprazole (Omeprazole) 40 Mg Cap 40 MG PO DAILY #30 Ref 0 CAP Paroxetine (Paroxetine) 20 Mg Tab 20 MG PO DAILY #30 Ref 0 TAB Potassium Chloride ER (Potassium Chloride ER) 20 Meq Tab 20 MEQ PO DAILY Electrolyte Replacement #30 Ref 0 TAB Pregabalin (Lyrica) 100 Mg Cap 100 MG PO TID #90 Ref 0 CAP Sucralfate (Sucralfate) 1 Gm Tab 1 GM PO QID on empty stomach Duodenal ulcer #120 Ref 0 TAB Discontinued Medications: Diclofenac Potassium (Diclofenac Potassium) 50 Mg Tab 75 MG PO BID #90 Ref 0 TAB Levothyroxine (Levothyroxine) 88 Mcg Tab 88 MCG PO DAILY Thyroid #30 Ref 0 TAB Jamar Mason MD May 21, 2016 06:48
[2016-05-21] MEDS ORDERED: LISINOPRIL 5 MG TAB PO SCH (09:00)
== END 2016-05-20 16:31 | disposition home or self-care (01) ==
LOC: PHED 18:10 → PHEDA 21:38 → PH3B 22:59
PROVIDERS: ADMIT Internal Medicine; ATTEND Internal Medicine
DX: H81.10 Benign paroxysmal vertigo, unspecified ear (principal); M16.12 Unilateral primary osteoarthritis, left hip; R11.2 Nausea with vomiting, unspecified; K30 Functional dyspepsia; M06.9 Rheumatoid arthritis, unspecified; K21.9 Gastro-esophageal reflux disease without esophagitis; Z79.899 Other long term (current) drug therapy; H55.09 Other forms of nystagmus; E87.6 Hypokalemia; R74.8 Abnormal levels of other serum enzymes; R94.6 Abnormal results of thyroid function studies; E03.9 Hypothyroidism, unspecified; G62.9 Polyneuropathy, unspecified; E87.8 Other disorders of electrolyte and fluid balance, not elsewhere classified; E83.51 Hypocalcemia; E87.0 Hyperosmolality and hypernatremia; I10 Essential (primary) hypertension; B96.1 Klebsiella pneumoniae [K. pneumoniae] as the cause of diseases classified elsewhere
CPT/HCPCS: 70450; 73502; 80053; 80069; 80076; 80307; 81001; 82140; 82247; 82248; 82550; 82607; 83735; 84439; 84443; 84480; 85025; 85610; 85730; 87077; 87086; 87186; 96361; 96374; 96375; 97110; 97116; 97162; 99285; G0378; G8987; G8988; J2060; J2405; J7030

== ENCOUNTER 2016-12-21 12:49 | Emergency (ER) | payer OTHER ==
[~2016-12-21] VITALS: Ht 160 cm; Wt 66.2 kg
[~2016-12-21 12:49] MED LIST changes: -DICL75 PO; +ESTR2TAB PO; +HYDR-3516 PO; -LEVO.1 PO; +LEVO100T5 PO; +LISI-519 PO; +LYRI100C PO; -OMEP20TA39 PO; +OMEP40CA2 PO; +PARO20TA2 PO; -PAXI20TA26 PO; -PERC5TAB12 PO; +POTA-163 PO; -POTA20IN3 PO; -PREG75 PO; -PREM0.45 PO
[2016-12-21 12:56] VITALS: BP 172/85; PULSE 85; RESP 18; TEMP 97.5; O2SAT 100
[2016-12-21 13:10] VITALS: BP 147/89; PULSE 76; RESP 18; O2SAT 97
--- NOTE | 2016-12-21 13:10 | PD ---
HPI Chief Complaint: Dizziness Time Seen by Provider: 13:10 Travel History International Travel<30 days: No Contact w/Intl Traveler<30days: No Traveled to known affect area: No History of Present Illness HPI 76-year-old female came to the emergency room with history of sudden onset dizziness that started yesterday. It has been getting worse and her drove her to the emergency room. She has been nauseous. As per the she has had these episodes many times over past many years. Patient seems anxious and in distress. She is answering questions. She prefers to keep her eyes shut since opening them seems to make it worse. Vital signs are stable otherwise. Her speech is normal and there is no unilateral weakness. No history of headache. [facility] Past Medical History Narrative Medical List of her past medical, surgical, social and family history is reviewed from the nursing note. Hx Anticoagulant Therapy: No Arthritis: Yes (RA) Asthma: Yes Anxiety: No Depression: No Heart Rhythm Problems: No Cancer: No Cardiovascular Problems: No High Cholesterol: No Chest Pain: No Congestive Heart Failure: No COPD: No Cerebrovascular Accident: No Diabetes: No Diminished Hearing: No Endocrine: Yes Gastrointestinal Disorders: Yes (ACID REFLUX, HIATAL HERNIA, HX OF ULCER) GERD: Yes Genitourinary: Yes (HX OF FREQUENT UTI) Headaches: No Hepatitis: No Hiatal Hernia: Yes Hypertension: No Immune Disorder: Yes (RHEUMATOID ARTHRITIS) Implanted Vascular Access Dvce: Yes Kidney Stones: No Musculoskeletal: Yes (RHEUMATOID ARTHRITIS, LOWER BACK AND L KNEE PAIN) Neurologic: Yes (LEXIS NEUROPATHY LEXIS UPPER/LOWER EXTREMITIES, RHEUMATOID ARTHRITIS) Psychiatric: No Reproductive: No Respiratory: Yes (HX OF ASTHMA, CHRONIC COUGH) Migraines: No Renal Failure: No Seizures: No Sleep Apnea: No Thyroid Disease: Yes Ulcer: Yes ?: Not Dilation and Curettage (D&C): Yes (x5) Past Surgical History Abdominal Surgery: Yes (UMBILICAL HERNIA REPAIR ) AICD: No Arteriovenous Shunt: No Ear Surgery: No Endocrine Surgery: No Eye Surgery: No Genitourinary Surgery: Yes (BLADDER SLING 06/2012) Gynecologic Surgery: Yes (HYSTERECTOMY , D & C'S -- 8 OR 9) Hysterectomy: Yes Insulin Pump: No Joint Replacement: Yes (R KNEE REPLACEMENT) Neurologic Surgery: Yes (LEXIS CARPAL TUNNEL, TRIGGER FINGER RELEASE) Oral Surgery: No Pacemaker: No Other Surgery: Yes (finger surgery, carpal tunnel, RIGHT KNEE REPLACEMENT) Social History Alcohol Use: No Tobacco Use: No Substance Use: No Allergies-Medications (Allergen,Severity, Reaction): Coded Allergies: infliximab (Unverified Allergy, Unknown, pt does not know, 12/26/16) infliximab-dyyb (Unverified Allergy, Unknown, pt does not know, 12/26/16) Comments List of her allergies reviewed from the nursing note. Reported Meds & Prescriptions Reported Meds & Active Scripts Active Meclizine (Meclizine HCl) 25 Mg Tab 25 Mg PO TID PRN 5 Days Reported Extra Strength Non-Aspirin (Acetaminophen) 500 Mg Tablet 1,000 Mg PO HS Levothyroxine (Levothyroxine Sodium) 88 Mcg Tab 88 Mcg PO DAILY Diclofenac Sodium DR (Diclofenac Sodium) 75 Mg Tabdr 75 Mg PO BID Omeprazole 40 Mg Cap 40 Mg PO DAILY Sucralfate 1 Gm Tab 1 Gm PO QID on empty stomach Potassium Chloride ER (Potassium Chloride) 20 Meq Tab 20 Meq PO DAILY Bumetanide 1 Mg Tab 1 Mg PO DAILY Paroxetine (Paroxetine HCl) 20 Mg Tab 20 Mg PO DAILY Estradiol 2 Mg Tab 0.5 Mg PO DAILY Lyrica (Pregabalin) 100 Mg Cap 100 Mg PO TID Narrative Medication List of her home medications reviewed from the nursing note. Review of Systems Except as stated in HPI: all other systems reviewed are Neg Neurologic: Positive: Dizziness Physical Exam Narrative GENERAL: Awake, alert, elderly, anxious, moderate distress SKIN: Focused skin assessment warm/dry. HEAD: Atraumatic. Normocephalic. EYES: Pupils equal and round. No scleral icterus. No injection or drainage. No nystagmus ENT: No nasal bleeding or discharge. Mucous membranes pink and moist. NECK: Trachea midline. No JVD. CARDIOVASCULAR: Regular rate and rhythm. No murmur appreciated. RESPIRATORY: No accessory muscle use. Clear to auscultation. Breath sounds equal bilaterally. GASTROINTESTINAL: Abdomen soft, non-tender, nondistended. Hepatic and splenic margins not palpable. MUSCULOSKELETAL: No obvious deformities. No clubbing. No cyanosis. No edema. NEUROLOGICAL: Awake and alert. No obvious cranial nerve deficits. Motor grossly within normal limits. Normal speech. PSYCHIATRIC: Appropriate mood and affect; insight and judgment normal. Data Data Last Documented VS Orders Orders Electrocardiogram (12/21/16 13:14) Complete Blood Count With Diff (12/21/16 13:14) Basic Metabolic Panel (Bmp) (12/21/16 13:14) Urinalysis - C+S If Indicated (12/21/16 13:14) Ct Brain W/O Iv Contrast(Rout) (12/21/16 13:14) Chest, Single Ap (12/21/16 13:14) Ecg Monitoring (12/21/16 13:14) Iv Access Insert/Monitor (12/21/16 13:14) Oximetry (12/21/16 13:14) Ondansetron Inj (Zofran Inj) (12/21/16 13:15) Sodium Chloride 0.9% Flush (Ns Flush) (12/21/16 13:15) Meclizine (Antivert) (12/21/16 13:15) Lorazepam Inj (Ativan Inj) (12/21/16 13:15) Ed Discharge Order (12/21/16 15:34) Labs Laboratory Tests Test 12/21/16 13:30 12/21/16 13:40 White Blood Count 9.1 TH/MM3 Red Blood Count 4.13 MIL/MM3 Hemoglobin 11.4 GM/DL Hematocrit 35.0 % Mean Corpuscular Volume 84.7 FL Mean Corpuscular Hemoglobin 27.6 PG Mean Corpuscular Hemoglobin Concent 32.5 % Red Cell Distribution Width 13.3 % Platelet Count 348 TH/MM3 Mean Platelet Volume 8.2 FL Neutrophils (%) (Auto) 70.0 % Lymphocytes (%) (Auto) 22.5 % Monocytes (%) (Auto) 6.0 % Eosinophils (%) (Auto) 0.8 % Basophils (%) (Auto) 0.7 % Neutrophils # (Auto) 6.3 TH/MM3 Lymphocytes # (Auto) 2.1 TH/MM3 Monocytes # (Auto) 0.5 TH/MM3 Eosinophils # (Auto) 0.1 TH/MM3 Basophils # (Auto) 0.1 TH/MM3 CBC Comment DIFF FINAL Differential Comment Blood Urea Nitrogen 16 MG/DL Creatinine 0.79 MG/DL Random Glucose 97 MG/DL Calcium Level 9.4 MG/DL Sodium Level 141 MEQ/L Potassium Level 4.0 MEQ/L Chloride Level 106 MEQ/L Carbon Dioxide Level 27.1 MEQ/L Anion Gap 8 MEQ/L Estimat Glomerular Filtration Rate 71 ML/MIN Urine Collection Type CLEAN CATCH Urine Color YELLOW Urine Turbidity CLEAR Urine pH 6.5 Urine Specific [place] 1.003 Urine Protein NEG mg/dL Urine Glucose (UA) NEG mg/dL Urine Ketones NEG mg/dL Urine Occult Blood TRACE Urine Nitrite NEG Urine Bilirubin NEG Urine Leukocyte Esterase SMALL Urine RBC 0-3 /hpf Urine WBC 0-2 /hpf Urine Squamous Epithelial Cells 0-5 /hpf Microscopic Urinalysis Comment CULT NOT INDICATED Urine Collection Time 13:40 MDM Medical Decision Making Medical Screen Exam Complete: Yes Emergency Medical Condition: Yes Medical Record Reviewed: Yes Interpretation(s) Twelve-lead EKG was reviewed by me. Normal sinus rhythm, normal axis, questionable old anterior NE, nonspecific ST-T wave changes. Heart rate of 75 bpm. Differential Diagnosis BPV, CVA, intracranial tumor Narrative Course 3:40 PM blood test results are back and within acceptable limits. CT scan of her head and chest x-ray are within normal limit. Patient was given by mouth meclizine and IV 0.5 mg of Ativan. She was ambulated and she did fine. Patient told me that her dizziness feels much better. I will discharge her home. Procedures EKG Prior to Arrival: No Diagnosis Primary Impression: Vertigo Additional Impression: BPV (benign positional vertigo) Qualified Codes: H81.10 - Benign paroxysmal vertigo, unspecified ear Referrals: Primary Care Physician 2 days Additional Instructions: Please return to the ER the condition worsens or any other new concerns. Otherwise follow-up with your primary care next couple days. Be careful coming down the stairs, uneven surfaces etc. Should not be driving until you get a clearance from your primary care. Med/Other Pt SpecificInfo: Prescription(s) given Scripts Meclizine (Meclizine) 25 Mg Tab 25 MG PO TID Y for VERTIGO for 5 Days, TAB 0 Refills Prov: Sue Paul MD 12/21/16 Disposition: 01 DISCHARGE HOME Condition: Stable Sue Paul MD Dec 21, 2016 13:10
[2016-12-21] MEDS ORDERED: LORazepam 2 MG/ML VIAL IM ONE (13:15)
[2016-12-21] MEDS ORDERED: SODIUM CHLORIDE 0.9% FLUSH 10 ML FLUSH IVF PRN (13:15)
[2016-12-21] MEDS ORDERED: ONDANSETRON HCL 4 MG/2 ML VIAL IVP ONE (13:15)
[2016-12-21] MEDS ORDERED: MECLIZINE HCL 25 MG TAB PO ONE (13:15)
[2016-12-21 13:39] LABS: AUTOMATED NEUTROPHIL # 6.3 TH/MM3 (1.8-7.7); BASOPHIL # 0.1 TH/MM3 (0-0.2); BASOPHIL % 0.7 % (0.0-2.0); EOSINOPHIL # 0.1 TH/MM3 (0-0.4); EOSINOPHIL % 0.8 % (0.0-4.0); HEMO FLAGS DIFF FINAL; LYMPH % 22.5 % (9.0-44.0); LYMPHOCYTE # 2.1 TH/MM3 (1.0-4.8); MEAN CELL VOLUME 84.7 FL (80.0-100.0); MEAN CORPUSCULAR HEMOGLOBIN 27.6 PG (27.0-34.0); MEAN CORPUSCULAR HGB CONC 32.5 % (32.0-36.0); PLATELET COUNT 348 TH/MM3 (150-450); RED BLOOD COUNT 4.13 MIL/MM3 (4.00-5.30); RED CELL DISTRIBUTION WIDTH 13.3 % (11.6-17.2); WHITE BLOOD COUNT 9.1 TH/MM3 (4.0-11.0)
--- NOTE | 2016-12-21 13:39 | RADRPT ---
EXAM DATE/TIME: 12/21/2016 13:24 [facility] COMPARISON: CHEST SINGLE AP, March 11, 2013, 12:54. INDICATIONS : Dizzy, nausea, CVA MEDICAL HISTORY : Rheumatoid arthritis. SURGICAL HISTORY : None. ENCOUNTER: Initial ACUITY: 1 week PAIN SCORE: 0/10 LOCATION: Bilateral chest FINDINGS: A single view of the chest demonstrates the lungs to be symmetrically, but under aerated without evid ence of mass, infiltrate or effusion. The cardiomediastinal contours are unremarkable. Osseous stru ctures are intact with some degenerative spurring of the dorsal spine. CONCLUSION: Hypoinflation with no acute cardiothymic process Trace Smiley MD on December 21, 2016 at 13:37 Board Certified Radiologist. This report was verified electronically.
[2016-12-21 13:49] LABS: GLUCOSE,URINE NEG (NEG); KETONE, URINE NEG (NEG); NITRITE,URINE NEG (NEG); PH, URINE 6.5 (5.0-8.5)
[2016-12-21 13:53] LABS: BLOOD, URINE TRACE (NEG); METHOD OF COLLECTION CLEAN CATCH; URINE COLOR YELLOW (YELLW/STRAW)
[2016-12-21 13:54] LABS: COMMENT (UR) CULT NOT INDICATED; CULTURE IF INDICATED CULT NOT INDICATED; RBC, URINE 0-3 /hpf (0-3); SQUAMOUS EPITHELIAL CELL URINE 0-5 /hpf (0-5); WBC, URINE 0-2 /hpf (0-5)
[2016-12-21 14:00] LABS: BICARBONATE 27.1 MEQ/L (21.0-32.0)
--- NOTE | 2016-12-21 14:19 | RADRPT ---
EXAM DATE/TIME: 12/21/2016 13:53 [facility] COMPARISON: CT BRAIN W/O CONTRAST, May 18, 2016, 20:42. INDICATIONS : Dizziness amd dry heaves. RADIATION DOSE: CTDIvol (mGy) MEDICAL HISTORY : Gastroesophageal reflux disease. SURGICAL HISTORY : Hysterectomy. ENCOUNTER: Initial ACUITY: 4 - 6 days PAIN SCALE: 0/10 LOCATION: cranial TECHNIQUE: Multiple contiguous axial images were obtained of the head. Using automated exposure control and adj ustment of the mA and/or kV according to patient size, radiation dose was kept as low as reasonably a chievable to obtain optimal diagnostic quality images. DICOM format image data is available electro nically for review and comparison. FINDINGS: CEREBRUM: The ventricles are normal for age. Old lacunar type infarct in the anterior limb of the left interna l capsule. No evidence of midline shift, mass lesion, hemorrhage or acute infarction. No extra-axial fluid collections are seen. POSTERIOR FOSSA: The cerebellum and brainstem are intact. The 4th ventricle is midline. The cerebellopontine angle i s unremarkable. EXTRACRANIAL: The visualized portion of the orbits is intact. SKULL: The calvaria is intact. No evidence of skull fracture. CONCLUSION: 1. Old lacunar-type infarct in the anterior limb of left internal capsule. 2. Nothing acute Trace Smiley MD on December 21, 2016 at 14:16 Board Certified Radiologist. This report was verified electronically.
[2016-12-21] MEDS ORDERED: [UNRECOGNIZED DRUG - CODE] PO (14:29)
[2016-12-21] MEDS ORDERED: TYLE325T PO (14:29)
[2016-12-21] MEDS ORDERED: DICL75TA PO (14:29)
[2016-12-21] MEDS ORDERED: LEVO88TA2 PO (14:29)
[2016-12-21 14:34] VITALS: BP 186/92; PULSE 72; RESP 18; O2SAT 98
[2016-12-21 15:25] VITALS: BP 187/86; PULSE 78; RESP 20; O2SAT 97
[2016-12-21] MEDS ORDERED: MECL-62 PO (15:37)
--- NOTE | 2016-12-22 19:33 | EKG ---
Date Performed: 12/21/2016 Time Performed: 13:21:25 PTAGE: 76 years EKG: Sinus rhythm NONSPECIFIC ST & T-WAVE ABNORMALITY BORDERLINE ECG Since PREVIOUS TRACING , no significant change noted PREVIOUS TRACIN03/11/2013 11.29 DOCTOR: Loulou Narvaez Interpretating Date/Time 12/22/2016 19:32:21
== END 2016-12-21 16:08 | disposition home or self-care (01) ==
LOC: PHED 12:49
DX: H81.10 Benign paroxysmal vertigo, unspecified ear (principal); M06.9 Rheumatoid arthritis, unspecified
CPT/HCPCS: 70450; 71010; 80048; 81001; 85025; 93005; 96372; 99285; J2060; J2405

== ENCOUNTER 2016-12-26 14:45 | Emergency (ER) | payer OTHER ==
[~2016-12-26] VITALS: Ht 160 cm; Wt 65.0 kg
[~2016-12-26 14:45] MED LIST changes: +DICL75TA PO; -HYDR-3516 PO; -LEVO100T5 PO; +LEVO88TA2 PO; -LISI-519 PO; +MECL-62 PO; +TYLE325T PO; +[UNRECOGNIZED DRUG - CODE] PO
[2016-12-26 14:51] VITALS: BP 137/60; PULSE 92; RESP 16; TEMP 98.1; O2SAT 96
--- NOTE | 2016-12-26 15:26 | PD ---
HPI Chief Complaint: GI Complaint Time Seen by Provider: 15:00 Travel History International Travel<30 days: No Contact w/Intl Traveler<30days: No Traveled to known affect area: No History of Present Illness HPI The patient was seen and examined in the presence of the nurse. This patient is very frustrated. She was seen as a patient in the office of her GI physician yesterday. She complains of constipation. She says the doctor spoke with her and told her to take miralax but never examined her. She called back today to say that she felt she had an impaction and was told to go to the emergency room. Patient is been constipated, last bowel movement 8 days ago. She is not having abdominal pain. No vomiting. She's been straining a lot. Symptoms severity is mild to moderate. She denies constipating medications such as narcotics. PFSH Past Medical History Hx Anticoagulant Therapy: No Arthritis: Yes (RA) Asthma: Yes Anxiety: No Depression: No Heart Rhythm Problems: No Cancer: No Cardiovascular Problems: No High Cholesterol: No Chest Pain: No Congestive Heart Failure: No COPD: No Cerebrovascular Accident: No Diabetes: No Diminished Hearing: No Endocrine: Yes Gastrointestinal Disorders: Yes (ACID REFLUX, HIATAL HERNIA, HX OF ULCER) GERD: Yes Genitourinary: Yes (HX OF FREQUENT UTI) Headaches: No Hepatitis: No Hiatal Hernia: Yes Hypertension: No Immune Disorder: Yes (RHEUMATOID ARTHRITIS) Implanted Vascular Access Dvce: Yes Kidney Stones: No Musculoskeletal: Yes (RHEUMATOID ARTHRITIS, LOWER BACK AND L KNEE PAIN) Neurologic: Yes (LEXIS NEUROPATHY LEXIS UPPER/LOWER EXTREMITIES, RHEUMATOID ARTHRITIS) Psychiatric: No Reproductive: No Respiratory: Yes (HX OF ASTHMA, CHRONIC COUGH) Immunizations Current: No Migraines: No Renal Failure: No Seizures: No Sleep Apnea: No Thyroid Disease: Yes Ulcer: Yes ?: Not Dilation and Curettage (D&C): Yes (x5) Past Surgical History Abdominal Surgery: Yes (UMBILICAL HERNIA REPAIR ) AICD: No Arteriovenous Shunt: No Ear Surgery: No Endocrine Surgery: No Eye Surgery: No Genitourinary Surgery: Yes (BLADDER SLING 06/2012) Gynecologic Surgery: Yes (HYSTERECTOMY , D & C'S -- 8 OR 9) Hysterectomy: Yes Insulin Pump: No Joint Replacement: Yes (R KNEE REPLACEMENT) Neurologic Surgery: Yes (LEXIS CARPAL TUNNEL, TRIGGER FINGER RELEASE) Oral Surgery: No Pacemaker: No Other Surgery: Yes (finger surgery, carpal tunnel, RIGHT KNEE REPLACEMENT) Social History Alcohol Use: No Tobacco Use: No Substance Use: No Allergies-Medications (Allergen,Severity, Reaction): Coded Allergies: infliximab (Unverified Allergy, Unknown, pt does not know, 12/26/16) infliximab-dyyb (Unverified Allergy, Unknown, pt does not know, 12/26/16) Reported Meds & Prescriptions Reported Meds & Active Scripts Active Meclizine (Meclizine HCl) 25 Mg Tab 25 Mg PO TID PRN 5 Days Reported Extra Strength Non-Aspirin (Acetaminophen) 500 Mg Tablet 1,000 Mg PO HS Tylenol (Acetaminophen) 325 Mg Tab 500 Mg PO AM Levothyroxine (Levothyroxine Sodium) 88 Mcg Tab 88 Mcg PO DAILY Diclofenac Sodium DR (Diclofenac Sodium) 75 Mg Tabdr 75 Mg PO BID Omeprazole 40 Mg Cap 40 Mg PO DAILY Sucralfate 1 Gm Tab 1 Gm PO QID on empty stomach Potassium Chloride ER (Potassium Chloride) 20 Meq Tab 20 Meq PO DAILY Bumetanide 1 Mg Tab 1 Mg PO DAILY Paroxetine (Paroxetine HCl) 20 Mg Tab 20 Mg PO DAILY Estradiol 2 Mg Tab 0.5 Mg PO DAILY Lyrica (Pregabalin) 100 Mg Cap 100 Mg PO TID Review of Systems General / Constitutional: No: Fever HENT: No: Headaches Cardiovascular: No: Chest Pain or Discomfort Respiratory: No: Cough Physical Exam Narrative GASTROINTESTINAL: Abdomen soft, non-tender, nondistended. Positive bowel sounds. No hepato-splenomegaly, or palpable masses. No guarding. SKIN: Focused skin assessment reveals no rash or ulcers. Skin is warm and dry. Palpation shows no induration or nodules. Psych: Normal mood and affect. Normal insight and judgment. Rectal: Normal tone, she does not have an impaction. There is no stool in the rectal vault. No external hemorrhoid or obvious fissure. No gross blood in the vault. Data Data Last Documented VS Vital Signs Date Time Temp Pulse Resp B/P (MAP) Pulse Ox O2 Delivery O2 Flow Rate FiO2 12/26/16 14:51 98.1 92 16 137/60 (85) 96 MDM Medical Decision Making Medical Screen Exam Complete: Yes Emergency Medical Condition: Yes Medical Record Reviewed: Yes Differential Diagnosis Constipation, ileus, obstruction, impaction Narrative Course I have reviewed the patient's electronic medical record. She is constipated No clinical suspicion of mechanical obstruction based upon no abdominal pain or vomiting and a soft benign nontender abdomen on exam. There is no impaction. The patient has GoLYTELY at home, a full 1 gallon jug She is going to start some doses of this until she has a movement Advised to follow up with her GI physician for further recommendations She should return if she worsens including development of abdominal pain or vomiting Diagnosis Primary Impression: Constipation Qualified Codes: K59.00 - Constipation, unspecified Additional Instructions: Call GI physician for follow-up appointment and recommendations Med/Other Pt SpecificInfo: Other Disposition: DISCHARGE HOME Condition: Stable Sky Lynn MD Dec 26, 2016 15:26
== END 2016-12-26 15:46 | disposition home or self-care (01) ==
LOC: PHED 14:45
DX: K59.00 Constipation, unspecified (principal)
CPT/HCPCS: 99282